=== PATIENT | female | born 2000 | race Two or more races ===

== ENCOUNTER 2025-05-30 21:12 | Emergency (ER) | payer OTHER ==
[~2025-05-30] VITALS: Ht 167.6 cm; Wt 56.7 kg
[2025-05-30] MEDS ORDERED: FAMOTIDINE/PF 20 MG/2 ML VIAL IV PUSH STA (22:09)
[2025-05-30 23:12] LABS: BASO % 0.6 % (0.1-1.2); EOS # 0.53 (0.04-0.54); EOS % 6.8 % (0.7-7.0); LYMPH # 1.45 (1.18-3.74); LYMPH % 18.6 % (19.3-53.1); MEAN PLATELET VOLUME 11.40 fl (9.4-12.4); MONO # 0.99 (0.24-0.82); NEUT # 4.76 (1.56-6.13); NEUT % 60.9 % (34.0-71.1); RED CELL DISTRIBUTION WIDTH 12.1 % (11.6-14.4)
[2025-05-30 23:18] LABS: MONO % 12.7 % (4.7-12.5)
[2025-05-30 23:37] LABS: ALT/SGPT 18.0 U/L (12-78); AST/SGOT 13.0 U/L (15-37); BILIRUBIN TOTAL 0.32 mg/dL (0.3-1.2); BUN CREA RATIO 10.0 (7.0-25.0); CREATININE SERUM 0.77 mg/dL (0.55-1.02); GFR 91.34; GLOBULINA 3.5 G/DL (2.4-3.5); GLUCOSE FASTING 149.0 mg/dL (65-100); OSMOLALITY SERUM 282.0 MOSM/KG (275-295)
== END 2025-05-31 01:13 | disposition home or self-care (01) ==
LOC: ER 21:12
PROVIDERS: General Practice
DX: R07.89 Other chest pain (principal); R06.02 Shortness of breath